=== PATIENT | female | born 1990 | race Caucasian/White ===

== ENCOUNTER 2021-03-04 17:27 | Emergency (ER) | payer OTHER ==
[2021-03-04 21:47] LABS: HEMOGLOBIN 13.1 gm/dl (12.3-15.3); RED BLOOD COUNT 4.46 M/UL (4.00-5.10); WHITE BLOOD COUNT 3.9 K/UL (4.5-11.0)
[2021-03-04 22:10] LABS: BUN/CREATININE RATIO 15 (0-10)
== END 2021-03-04 22:12 | disposition home or self-care (01) ==
LOC: ER1 17:27
PROVIDERS: Physician Assistant
DX: R30.0 Dysuria (principal); R10.9 Unspecified abdominal pain; Z88.0 Allergy status to penicillin
CPT/HCPCS: 80053; 81001; 83690; 84703; 85025; 87086; 99283